=== PATIENT | female | born 1990 ===

== ENCOUNTER 2017-03-11 08:35 | Emergency (ER) | payer MEDICAID ==
[2017-03-11 08:43] VITALS: BMI 16.8
[2017-03-11 08:46] VITALS: BP 102/63; PULSE 100; RESP 16; TEMP 98; O2SAT 100
--- NOTE | 2017-03-11 09:13 | ED PDOC ---
HPI: CCC, URI, Sore Throat Time Seen by Provider: 03/11/17 08:53 Chief Complaint (Nursing): ENT Problem Chief Complaint (Provider): ENT Problem History Per: Patient History/Exam Limitations: no limitations Onset/Duration Of Symptoms: Days Current Symptoms Are (Timing): Still Present Location Of Pain: Throat Sick Contacts (Context): None Associated Symptoms: Fever, Chills Ear Symptoms: Bilateral: None Severity: Moderate Additional Complaint(s): Patient is a 26 year old female who presents to ED for evaluation of sore throat for 5 days. Patient reports pain has been steadily worsening, with increased pain on swallowing. Patient also reports fever of 102 3 days ago but admits to taking no medication for fever or pain. Denies cough. Past Medical History Reviewed: Historical Data, Nursing Documentation, Vital Signs Vital Signs: Last Vital Signs Temp 98 F 03/11/17 08:43 Pulse 100 H 03/11/17 08:43 Resp 16 03/11/17 08:43 BP 102/63 03/11/17 08:43 Pulse Ox 100 03/11/17 09:23 - Medical History PMH: No Chronic Diseases - Surgical History Surgical History: - Family History Family History: States: No Known Family Hx - Living Arrangements Living Arrangements: With Family - Immunization History Hx Tetanus Toxoid Vaccination: No Hx Influenza Vaccination: Yes (06/2015) Hx Pneumococcal Vaccination: No - Home Medications Home Medications: Ambulatory Orders Medication Instructions Recorded Amoxicillin 875 mg PO BID #20 tablet 03/11/17 - Allergies Allergies/Adverse Reactions: Allergies Allergy/AdvReac Type Severity Reaction Status Date / Time shellfish derived Allergy ANAPHYLAXIS Verified 03/11/17 09:00 Review of Systems Constitutional: Positive for: Fever, Chills ENT: Positive for: Throat Pain. Negative for: Ear Pain Cardiovascular: Negative for: Chest Pain Respiratory: Negative for: Cough, Shortness of Breath Musculoskeletal: Positive for: Neck Pain Neurological: Negative for: Weakness, Numbness Physical Exam - Reviewed Nursing Documentation Reviewed: Yes Vital Signs Reviewed: Yes - Physical Exam Appears: Positive for: Non-toxic, No Acute Distress Skin: Positive for: Normal Color, Warm. Negative for: Rash Eye Exam: Positive for: Normal appearance ENT: Positive for: Pharyngeal Erythema, Tonsillar Exudate. Negative for: Tonsillar Swelling Neck: Positive for: Normal, Painless ROM, Supple Extremity: Positive for: Normal ROM Lymphatic: Positive for: Adenopathy (anterior cervical lymphadenopathy ) Neurologic/Psych: Positive for: Alert, Oriented - ECG O2 Sat by Pulse Oximetry: 100 (RA) Pulse Ox Interpretation: Normal Medical Decision Making Medical Decision Making: Time: 909 Initial impression: Step throat Initial plan: -- Rapid strep -- Urine preg -- Motrin PO -- Flu swab Scribe Attestation: Documented by Leora Jay acting as a scribe for Jhonny Najera MD MD Scribe Attestation: All medical record entries made by the Scribe were at my direction and personally dictated by me. I have reviewed the chart and agree that the record accurately reflects my personal performance of the history, physical exam, medical decision making, and the department course for this patient. I have also personally directed, reviewed, and agree with the discharge instructions and disposition. Disposition - Clinical Impression Clinical Impression: Acute streptococcal pharyngitis - Patient ED Disposition Is Patient to be Admitted: No Doctor Will See Patient In The: Office Counseled Patient/Family Regarding: Studies Performed, Diagnosis, Need For Followup - Disposition Referrals: [facility] [Outside] Disposition: Routine/Home Disposition Time: 10:13 Condition: GOOD Additional Instructions: Take tylenol or motrin for pain and fever. Return for worsening. Follow up with your PCP in 2-3 days. Prescriptions: Amoxicillin 875 mg PO BID #20 tablet Instructions: Strep Throat (ED)
== END 2017-03-11 11:35 | disposition home or self-care (01) ==
LOC: H.ER 08:35
DX: J02.0 Streptococcal pharyngitis (principal)

== ENCOUNTER 2017-04-24 08:39 | Emergency (ER) | payer MEDICAID ==
[2017-04-24 08:39] VITALS: BMI 16.8
[2017-04-24 08:52] VITALS: RESP 18; TEMP 98.4
[2017-04-24 10:08] LABS: RBC URINE 9 /hpf (0-3); URINE BACTERIA MANY (<OCC); URINE BILIRUBIN NEGATIVE (NEGATIVE); URINE BLOOD MODERATE (NEGATIVE); URINE COLOR YELLOW (YELLOW); URINE GLUCOSE (UA) NEG (Normal); URINE KETONE NEGATIVE (NEGATIVE); URINE LEUKOCYTE ESTERASE MOD Leu/uL (Negative); URINE PROTEIN 30 mg/dL (NEGATIVE); URINE UROBILINOGEN 0.2-1.0 mg/dL (0.2-1.0); WBC URINE 73 /hpf (0-5)
[2017-04-24 10:12] LABS: BASO % 0.3 % (0.0-2.0); EOS % 0.1 % (0.0-4.0); HEMATOCRIT 37.9 % (34.0-47.0); LYMPH # 1.1 K/uL (1.0-4.3); LYMPH % 12.9 % (20.0-40.0); MEAN CELL VOLUME 87.2 fl (81.0-99.0); MEAN CORPUSCULAR HEMOGLOBIN 30.2 pg (27.0-31.0); MEAN CORPUSCULAR HGB CONC 34.7 g/dL (33.0-37.0); MEAN PLATELET VOLUME 8.4 fl (7.2-11.7); MONO # 1.1 K/uL (0.0-0.8); NEUT # 6.4 K/uL (1.8-7.0); NEUT % 73.7 % (50.0-75.0); NRBC % 0.1 % (0.0-0.0); RED CELL DISTRIBUTION WIDTH 13.5 % (11.5-14.5); WHITE BLOOD COUNT 8.7 K/uL (4.8-10.8)
[2017-04-24 10:21] LABS: ALB/GLOB RATIO 1.2 (1.0-2.1); ALKALINE PHOSPHATASE 88 U/L (38-126); ALT/SGPT 19 U/L (9-52); AST/SGOT 30 U/L (14-36); BILIRUBIN,TOTAL 0.9 mg/dl (0.2-1.3); BLOOD UREA NITROGEN 12 mg/dl (7-17); CALCIUM 9.8 mg/dL (8.4-10.2); CARBON DIOXIDE 27 mmol/L (22-30); CHLORIDE 98 mmol/L (98-107); GFR AFRICAN-AMERICAN > 60; GLUCOSE,RANDOM 101 mg/dL (65-105); POTASSIUM 4.8 MMOL/L (3.6-5.0); SODIUM 136 mmol/l (132-148); TOTAL PROTEIN 8.7 G/DL (6.3-8.2)
[2017-04-24] MEDS ORDERED: cefTRIAXone (Rocephin) 1 gm Inj ONE (10:45)
--- NOTE | 2017-04-24 11:13 | ED PDOC ---
HPI: SOB/CHF/COPD Time Seen by Provider: 04/24/17 09:11 Chief Complaint (Nursing): Shortness Of Breath Chief Complaint (Provider): weakness, SOB History Per: Patient History/Exam Limitations: no limitations Current Symptoms Are (Timing): Still Present Severity: Moderate Similar Symptoms Previously: none Recently: Treated By A Physician (PMD) Additional Complaint(s): 26yo female c/o weakness, SOB since starting naprosyn and flexeril 3 days ago. Went to PMD then for "lump" on the lower back, PMD told her it was back spasm and Rx naprosyn and flexeril. She took one dose of each and developed fatigue, SOB and states next day had fever 104, mild nausea. Denies urinary symptoms, current back pain or vomiting/diarrhea. Denies prior hx medication adverse reactions but has never taken flexeril or naprosyn before. Past Medical History Reviewed: Historical Data, Nursing Documentation, Vital Signs Vital Signs: Last Vital Signs Temp 98.4 F 04/24/17 08:51 Pulse 85 04/24/17 14:22 Resp 18 04/24/17 14:22 BP 90/65 L 04/24/17 14:22 Pulse Ox 100 04/24/17 14:22 - Medical History PMH: No Chronic Diseases Denies: Chronic Kidney Disease - Surgical History Surgical History: - Family History Family History: States: Unknown Family Hx - Living Arrangements Living Arrangements: With Family - Social History Current smoker - smoking cessation education provided: No Alcohol: None Drugs: Denies - Immunization History Hx Tetanus Toxoid Vaccination: No Hx Influenza Vaccination: Yes (06/2015) Hx Pneumococcal Vaccination: No - Home Medications Home Medications: Ambulatory Orders Medication Instructions Recorded Ciprofloxacin [Cipro] 500 mg PO BID #14 tab 04/24/17 Cyclobenzaprine HCl 10 mg PO HS PRN 04/24/17 Naproxen [Naprosyn] 500 mg PO BID PRN 04/24/17 - Allergies Allergies/Adverse Reactions: Allergies Allergy/AdvReac Type Severity Reaction Status Date / Time shellfish derived Allergy ANAPHYLAXIS Verified 03/11/17 09:00 Review of Systems Constitutional: Positive for: Fever, Weakness Cardiovascular: Negative for: Chest Pain (tightness), Palpitations Respiratory: Positive for: Shortness of Breath. Negative for: Cough Gastrointestinal: Negative for: Nausea, Vomiting, Abdominal Pain Genitourinary Female: Negative for: Dysuria, Frequency Musculoskeletal: Negative for: Neck Pain, Shoulder Pain, Arm Pain, Back Pain Skin: Negative for: Lesions Neurological: Negative for: Weakness, Numbness, Dizziness Psych: Negative for: Anxiety Physical Exam - Reviewed Nursing Documentation Reviewed: Yes Vital Signs Reviewed: Yes - Physical Exam Appears: Positive for: Well, Non-toxic, No Acute Distress Head Exam: Positive for: ATRAUMATIC, NORMAL INSPECTION, NORMOCEPHALIC Skin: Positive for: Normal Color, Warm, DRY Eye Exam: Positive for: EOMI, Normal appearance, PERRL ENT: Positive for: Normal ENT Inspection Neck: Positive for: Normal, Painless ROM Cardiovascular/Chest: Positive for: Regular Rate, Rhythm Respiratory: Positive for: CNT, Normal Breath Sounds Gastrointestinal/Abdominal: Positive for: Bowel Sounds, Soft. Negative for: Tenderness, Guarding Back: Positive for: Normal Inspection. Negative for: L CVA Tenderness, R CVA Tenderness, Muscle Spasm Extremity: Positive for: Normal ROM Neurologic/Psych: Positive for: Alert, Oriented - Laboratory Results Result Diagrams: 04/24/17 09:55 04/24/17 09:55 - ECG O2 Sat by Pulse Oximetry: 99 Medical Decision Making Medical Decision Making: Check labs/ r/o atypical presentation pyelonephritis vs UTI vs adverse drug reaction vs cardiac abnormality vs other. Labs reviewed, +UTI UCx added to orders Possible pyelo given fever prior. Now afebrile. WBC normal. Chem unremarkable. CXR no acute infiltrate normal heart size on my review Given dose rocephin and DC with PO Abx and followup PMD 2-3 days. Disposition - Clinical Impression Clinical Impression: UTI (urinary tract infection), Pyelonephritis - Patient ED Disposition Is Patient to be Admitted: No Counseled Patient/Family Regarding: Studies Performed, Diagnosis, Need For Followup, Rx Given - Disposition Referrals: Sudhakar Cooper MD [Staff Provider] - Disposition: Routine/Home Disposition Time: 13:20 Condition: STABLE Additional Instructions: Return to ER for any new or worsening symptoms. Prescriptions: Ciprofloxacin [Cipro] 500 mg PO BID #14 tab Instructions: Urinary Tract Infection in Women (ED), Acute Pyelonephritis (ED) Forms: [employer] (Irish)
--- NOTE | 2017-04-24 12:07 | RAD ---
HISTORY: chest pain/ r/o infiltrate COMPARISON: No prior. TECHNIQUE: Chest PA and lateral FINDINGS: LUNGS: No focal consolidation. Minor biapical pleural thickening PLEURA: No significant pleural effusion identified. No pneumothorax apparent. CARDIOVASCULAR: Normal. OSSEOUS STRUCTURES: No significant abnormalities. VISUALIZED UPPER ABDOMEN: Normal. OTHER FINDINGS: None. IMPRESSION: No active disease. Minor biapical pleural thickening.
[2017-04-24] MEDS ORDERED: Sodium Chloride 0.9% 1,000 ML IV STA (12:12)
[2017-04-24 14:23] VITALS: BP 90/65; PULSE 85
--- NOTE | 2017-04-24 18:41 | CARD ---
APPROVED REPORT EKG Measurement Heart [id number] <Conclusion> Normal sinus rhythm Normal ECG
[2017-04-29 15:05] VITALS: O2SAT 99
== END 2017-04-24 14:28 | disposition home or self-care (01) ==
LOC: H.ER 08:39
DX: N39.0 Urinary tract infection, site not specified (principal); R50.9 Fever, unspecified; R53.1 Weakness; N12 Tubulo-interstitial nephritis, not specified as acute or chronic; R07.9 Chest pain, unspecified

== ENCOUNTER 2017-05-21 13:52 | Emergency (ER) | payer MEDICAID ==
[2017-05-21 13:52] VITALS: BMI 16.8
[2017-05-21 14:04] VITALS: BP 96/53; PULSE 71; RESP 17; TEMP 98; O2SAT 99
--- NOTE | 2017-05-21 14:58 | ED PDOC ---
HPI: Back Time Seen by Provider: 05/21/17 14:06 Chief Complaint (Nursing): Abdominal Pain Chief Complaint (Provider): Lower back pain History Per: Patient History/Exam Limitations: no limitations Onset/Duration Of Symptoms: Sudden Onset Current Symptoms Are (Timing): Still Present Quality Of Discomfort: "Pain" Severity: Moderate Additional Complaint(s): Krishna Valdovinos is a 26 y/o female presenting to the ER on 05/21/2017 with complaints of a sudden onset of lower back pain. 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 She says she applied a lot of pressure on her left arm and then felt pain in her lower back. She is concerned because last month she had a kidney infection, prompting her to seek evaluation today based on a similar presentation in the past. She denies dysuria, hematuria, fever, nausea, vomiting, or abdominal pain. Past Medical History Reviewed: Historical Data, Nursing Documentation, Vital Signs Vital Signs: Last Vital Signs Temp 98 F 05/21/17 14:00 Pulse 71 05/21/17 14:00 Resp 17 05/21/17 14:00 BP 96/53 L 05/21/17 14:00 Pulse Ox 99 05/21/17 14:00 - Medical History PMH: Denies: Chronic Kidney Disease Other PMH: kidney infection - Surgical History Surgical History: - Family History Family History: States: Unknown Family Hx - Social History Current smoker - smoking cessation education provided: No Alcohol: None Drugs: Denies - Immunization History Hx Tetanus Toxoid Vaccination: No Hx Influenza Vaccination: Yes (06/2015) Hx Pneumococcal Vaccination: No - Home Medications Home Medications: Ambulatory Orders Medication Instructions Recorded Ciprofloxacin [Cipro] 500 mg PO BID #14 tab 04/24/17 Cyclobenzaprine HCl 10 mg PO HS PRN 04/24/17 Naproxen [Naprosyn] 500 mg PO BID PRN 04/24/17 - Allergies Allergies/Adverse Reactions: Allergies Allergy/AdvReac Type Severity Reaction Status Date / Time shellfish derived Allergy ANAPHYLAXIS Verified 05/21/17 14:00 Review of Systems ROS Statement: Except As Marked, All Systems Reviewed And Found Negative Constitutional: Negative for: Fever Gastrointestinal: Negative for: Nausea, Vomiting, Abdominal Pain Genitourinary Female: Negative for: Dysuria, Hematuria Musculoskeletal: Positive for: Back Pain Physical Exam - Reviewed Nursing Documentation Reviewed: Yes Vital Signs Reviewed: Yes - Physical Exam Appears: Positive for: Non-toxic, No Acute Distress Head Exam: Positive for: ATRAUMATIC, NORMOCEPHALIC Skin: Positive for: Normal Color. Negative for: Rash Eye Exam: Positive for: Normal appearance Neck: Positive for: Normal, Painless ROM Gastrointestinal/Abdominal: Positive for: Normal Exam, Soft. Negative for: Tenderness Back: Positive for: Normal Inspection, Muscle Spasm ((+) left sided paralumbar ) . Negative for: L CVA Tenderness, R CVA Tenderness, Vertebral Tenderness Extremity: Positive for: Normal ROM. Negative for: Deformity, Swelling Neurologic/Psych: Positive for: Alert, Oriented. Negative for: Motor/Sensory Deficits - ECG O2 Sat by Pulse Oximetry: 99 Medical Decision Making Medical Decision Makin:06 Initial Impression- 26 y/o female with lower back pain After pt was informed of results, she declined to take any pain medications clinically and states she will take Advil at home as needed. Return precautions were given if symptoms persist or worsen. Condition is stable for discharge. Clinical Impression- Back Pain Documented by Sherwin Lanza, acting as a scribe for Luis Leon PA-C All medical record entries made by the Scribe were at my direction and personally dictated by me. I have reviewed the chart and agree that the record accurately reflects my personal performance of the history, physical exam, medical decision making, and the department course for this patient. I have also personally directed, reviewed, and agree with the discharge instructions and disposition. Disposition - Clinical Impression Clinical Impression: Back pain - Disposition Referrals: [facility] [Outside] Disposition Time: 15:02 Condition: STABLE Additional Instructions: Take Advil at home for pain. Follow up with [facility] in 2 days for further evaluation. Instructions: Acute Low Back Pain (ED) Print Language: [employer]
== END 2017-05-21 14:53 | disposition home or self-care (01) ==
LOC: H.ER 13:52
DX: M54.5 Low back pain (principal)

== ENCOUNTER 2018-01-11 08:06 | Emergency (ER) | payer MEDICAID ==
[2018-01-11 08:06] VITALS: BMI 16.8
[2018-01-11 08:31] VITALS: BP 102/62; PULSE 73; RESP 16; TEMP 97; O2SAT 99
[2018-01-11 10:19] LABS: SQUAMOUS EPITHIAL 9 /hpf (0-5); URINE BACTERIA RARE (<OCC); URINE BILIRUBIN NEGATIVE (NEGATIVE); URINE BLOOD NEGATIVE (NEGATIVE); URINE CLARITY CLOUDY (Clear); URINE COLOR YELLOW (YELLOW); URINE GLUCOSE (UA) NEG (Normal); URINE LEUKOCYTE ESTERASE NEG Leu/uL (Negative); URINE NITRATE NEGATIVE (NEGATIVE); URINE PROTEIN 30 mg/dL (NEGATIVE); URINE UROBILINOGEN 0.2-1.0 mg/dL (0.2-1.0)
--- NOTE | 2018-01-11 10:22 | US ---
PROCEDURE: Bilateral inguinal ultrasound. HISTORY: Bilateral l groin US, lymphadenopathy/pain COMPARISON: No prior study available for comparison TECHNIQUE: Sonographic evaluation of the soft tissues bilateral inguinal region performed. FINDINGS: The current study reveals multiple small medium-sized bilateral inguinal lymph nodes, the largest on the right side measuring approximately 1.4 cm and the largest on the left side measuring approximately 1.1 cm. . No evidence of fluid collections are identified. IMPRESSION: Small to medium-sized bilateral inguinal lymph nodes as described. There are no fluid collections identified.
--- NOTE | 2018-01-11 11:04 | ED PDOC ---
HPI: General Adult Time Seen by Provider: 01/11/18 09:06 Chief Complaint (Nursing): Abdominal Pain Chief Complaint (Provider): groin pain History Per: Patient History/Exam Limitations: no limitations Onset/Duration Of Symptoms: Days (2) Current Symptoms Are (Timing): Still Present Severity: Moderate Additional Complaint(s): 27yo female c/o R groin pain / pressure for several days. States feels "a ball" in the area- denies redness, drainage, erythema or prior hx similar. Denies fever, weight loss, noticing other swelling to joints/neck/arm pits. Past Medical History Reviewed: Historical Data, Nursing Documentation, Vital Signs Vital Signs: Last Vital Signs Temp 97 F L 01/11/18 08:30 Pulse 73 01/11/18 08:30 Resp 16 01/11/18 08:30 BP 102/62 01/11/18 08:30 Pulse Ox 99 01/11/18 08:30 - Medical History PMH: No Chronic Diseases Denies: Chronic Kidney Disease - Surgical History Surgical History: - Family History Family History: States: Unknown Family Hx - Living Arrangements Living Arrangements: With Family - Social History Current smoker - smoking cessation education provided: No - Immunization History Hx Tetanus Toxoid Vaccination: No Hx Influenza Vaccination: Yes (06/2015) Hx Pneumococcal Vaccination: No - Home Medications Home Medications: Ambulatory Orders Medication Instructions Recorded Ciprofloxacin [Cipro] 500 mg PO BID #14 tab 04/24/17 Cyclobenzaprine HCl 10 mg PO HS PRN 04/24/17 Naproxen [Naprosyn] 500 mg PO BID PRN 04/24/17 - Allergies Allergies/Adverse Reactions: Allergies Allergy/AdvReac Type Severity Reaction Status Date / Time Penicillins Allergy RASH Verified 01/11/18 08:30 shellfish derived Allergy ANAPHYLAXIS Verified 05/21/17 14:00 Review of Systems Constitutional: Negative for: Fever, Chills Cardiovascular: Negative for: Chest Pain, Palpitations Respiratory: Negative for: Cough, Shortness of Breath Gastrointestinal: Positive for: Other (groin discomfort). Negative for: Nausea , Vomiting, Abdominal Pain Genitourinary Female: Negative for: Dysuria Musculoskeletal: Negative for: Neck Pain Skin: Negative for: Rash, Jaundice Neurological: Negative for: Weakness, Numbness Psych: Negative for: Anxiety Physical Exam - Reviewed Nursing Documentation Reviewed: Yes Vital Signs Reviewed: Yes - Physical Exam Appears: Positive for: Well, Non-toxic, No Acute Distress Head Exam: Positive for: ATRAUMATIC, NORMAL INSPECTION, NORMOCEPHALIC Skin: Positive for: Normal Color, Warm, DRY Eye Exam: Positive for: EOMI, Normal appearance, PERRL ENT: Positive for: Normal ENT Inspection Neck: Positive for: Normal, Painless ROM, Supple (negative lympadenopathy) Cardiovascular/Chest: Positive for: Regular Rate, Rhythm Respiratory: Positive for: CNT, Normal Breath Sounds Gastrointestinal/Abdominal: Positive for: Bowel Sounds, Soft, Other (b/l groin w several <1cm mobile nontender lymph nodes) Back: Positive for: Normal Inspection Extremity: Positive for: Normal ROM, Other (no lymphadenopathy axilla b/l) Neurologic/Psych: Positive for: Alert, Oriented. Negative for: Motor/Sensory Deficits - ECG O2 Sat by Pulse Oximetry: 99 Medical Decision Making Medical Decision Making: Udip neg preg US groin as below Accession No. : [id number] Patient Name / ID : ARNAUD HOWARD / [id number] Exam Date : 01/11/2018 09:51:26 ( Approved ) Study Comment : Sex / Age : F / 27Y Creator : Conner Chaudhry MD Dictator : Conner Chaudhry MD [employer] Runner : Clinical Safety Manager : Conner Chaudhry MD Approver2 : Report Date : 01/11/2018 10:20:55 My Comment : PROCEDURE: Bilateral inguinal ultrasound. HISTORY: Bilateral l groin US, lymphadenopathy/pain COMPARISON: No prior study available for comparison TECHNIQUE: Sonographic evaluation of the soft tissues bilateral inguinal region performed. FINDINGS: The current study reveals multiple small medium-sized bilateral inguinal lymph nodes, the largest on the right side measuring approximately 1.4 cm and the largest on the left side measuring approximately 1.1 cm. . No evidence of fluid collections are identified. IMPRESSION: Small to medium-sized bilateral inguinal lymph nodes as described. There are no fluid collections identified. --------- explained need for followup and further testing if symptoms persist Disposition - Clinical Impression Clinical Impression: Lymphadenopathy - Patient ED Disposition Is Patient to be Admitted: Transfer of Care Counseled Patient/Family Regarding: Studies Performed, Diagnosis, Need For Followup - Disposition Disposition: Routine/Home Disposition Time: 11:05 Condition: STABLE Additional Instructions: Return to ER for any worse or new symptoms. If symptoms persist >2 weeks see your doctor for further testing. Instructions: Lymphadenopathy (ED)
== END 2018-01-11 11:54 | disposition home or self-care (01) ==
LOC: H.ER 08:06
DX: R59.9 Enlarged lymph nodes, unspecified (principal)

== ENCOUNTER 2018-05-20 23:11 | Emergency (ER) | payer MEDICAID ==
[2018-05-20 23:13] VITALS: BMI 16.8
[2018-05-20 23:37] VITALS: O2SAT 100
[2018-05-21] MEDS ORDERED: Alum-Mag Hydrox-Simethicone Susp (30 mL) PO ONE (00:30)
--- NOTE | 2018-05-21 00:36 | ED PDOC ---
HPI: Abdomen Time Seen by Provider: 05/21/18 00:08 Chief Complaint (Nursing): Abdominal Pain History Per: Patient Onset/Duration Of Symptoms: Hrs Additional Complaint(s): NO PMHx presenting with lower abdominal "fullness", states she has gas but is also concerned she might be , did not take a test. No fevers , nausea, vomiting, abnormal stools, urinary symptoms, vaginal bleeding, or vaginal discharge. States she has no pain currently but feels "gassy". Past Medical History Reviewed: Historical Data, Nursing Documentation, Vital Signs Vital Signs: Last Vital Signs Temp 97.8 F 05/20/18 23:33 Pulse 72 05/20/18 23:33 Resp 14 05/20/18 23:33 BP 92/69 L 05/20/18 23:33 Pulse Ox 100 05/21/18 01:36 - Medical History PMH: No Chronic Diseases Denies: Chronic Kidney Disease - Surgical History Surgical History: - Family History Family History: States: Unknown Family Hx - Immunization History Hx Tetanus Toxoid Vaccination: No Hx Influenza Vaccination: Yes (06/2015) Hx Pneumococcal Vaccination: No - Home Medications Home Medications: Ambulatory Orders Medication Instructions Recorded Ciprofloxacin [Cipro] 500 mg PO BID #14 tab 04/24/17 Cyclobenzaprine HCl 10 mg PO HS PRN 04/24/17 Naproxen [Naprosyn] 500 mg PO BID PRN 04/24/17 - Allergies Allergies/Adverse Reactions: Allergies Allergy/AdvReac Type Severity Reaction Status Date / Time Penicillins Allergy RASH Verified 05/20/18 23:33 shellfish derived Allergy ANAPHYLAXIS Verified 05/20/18 23:33 Review of Systems ROS Statement: Except As Marked, All Systems Reviewed And Found Negative Constitutional: Negative for: Fever Gastrointestinal: Positive for: Abdominal Pain. Negative for: Nausea, Vomiting Physical Exam - Reviewed Nursing Documentation Reviewed: Yes Vital Signs Reviewed: Yes - Physical Exam Appears: Positive for: Well, Non-toxic, No Acute Distress Head Exam: Positive for: ATRAUMATIC, NORMAL INSPECTION, NORMOCEPHALIC Skin: Positive for: Normal Color, Warm, DRY Eye Exam: Positive for: EOMI, Normal appearance, PERRL ENT: Positive for: Normal ENT Inspection Neck: Positive for: Normal, Painless ROM Cardiovascular/Chest: Positive for: Regular Rate, Rhythm Respiratory: Positive for: CNT, Normal Breath Sounds Gastrointestinal/Abdominal: Positive for: Normal Exam, Bowel Sounds, Soft. Negative for: Tenderness, Organomegaly, Mass, Distended, Guarding, Rebound Back: Positive for: Normal Inspection Extremity: Positive for: Normal ROM Neurologic/Psych: Positive for: Alert, Oriented - ECG O2 Sat by Pulse Oximetry: 100 Pulse Ox Interpretation: Normal Medical Decision Making Medical Decision Makin Patient presenting with "gas pain", but concerned for . Patient is very well appearing, no distress, normal exam Will check for , if negative- xray for bowel gas pattern 120 Upreg neg Xray shows moderate stool Will advice prune juice Stable, very well appearing upon discharge Disposition - Clinical Impression Clinical Impression: Abdominal pain in female - Disposition Referrals: [facility] [Provider Group] Disposition: Routine/Home Disposition Time: 01:37 Condition: IMPROVED Instructions: Stomach Ache and Stomach Upset, Constipation, Adult (DC) Forms: [employer] ([place])
[2018-05-21] MEDS ORDERED: Alum-Mag Hydrox-Simethicone Susp (30 mL) ONE (00:53)
[2018-05-21 04:11] VITALS: BP 106/74; PULSE 84; RESP 16; TEMP 98.1
--- NOTE | 2018-05-21 08:07 | RAD ---
HISTORY: abd pain COMPARISON: No prior. FINDINGS: BOWEL: Nonobstructive bowel gas pattern. No free intraperitoneal gas or suspicious intra-abdominal calcifications identified. Moderate fecal loading seen throughout various large-bowel segments which are otherwise does somewhat distended with gas, particularly at the flexures bilaterally. BONES: Normal. OTHER FINDINGS: None. IMPRESSION: Nonobstructive bowel gas pattern appreciated. Borderline constipation.
== END 2018-05-21 01:50 | disposition home or self-care (01) ==
LOC: H.ER 23:11
DX: K59.00 Constipation, unspecified (principal); R10.9 Unspecified abdominal pain